=== PATIENT | male | born 1965 | race Caucasian/White ===

== ENCOUNTER 2019-08-14 08:57 | Day surgery (SDC) | payer BC ==
[~2019-08-14 08:57] MED LIST: Lactated Ringers 1,000 ML IV SCH; Lidocaine 1%/Sod Bicarbonate in NS 8.4% 1 ML Syringe IDERM PRN; Sodium Chloride 0.9% 10 ML Syringe FLUSH PRN
--- NOTE | 2019-08-14 09:46 | PCM.PREANE ---
Preanesthetic Assessment - Procedure Proposed Procedure: colonoscopy - Anesthesia/Transfusion/Family Hx Anesthesia History: Prior Anesthesia Without Reaction Family History of Anesthesia Reaction: No Transfusion History: No Prior Transfusion(s) - Review of Systems General: No Symptoms, Chills (last night with prep) Pulmonary: No Symptoms (exertion), Wheezing Cardiovascular: No Symptoms Gastrointestinal: No Symptoms Neurological: No Symptoms Other: Reports: None - Physical Assessment NPO Status Date: 08/13/19 NPO Status Time: 21:00 Vital Signs: 97.5 Height: 5 ft 10 in Weight: 103 kg ASA Class: 2 Mental Status: Alert & Oriented x3 Airway Class: Mallampati = 1 Dentition: Reports: Normal Dentition Thyro-Mental Finger Breadths: 3 Mouth Opening Finger Breadths: 3 ROM/Head Extension: Full Lungs: Clear to Auscultation, Normal Respiratory Effort Cardiovascular: Regular Rate, Regular Rhythm - Allergies Allergies/Adverse Reactions: Allergies Allergy/AdvReac Type Severity Reaction Status Date / Time No Known Allergies Allergy Verified 08/11/19 15:32 - Blood Blood Available: No - Acknowledgements Anesthesia Type Planned: MAC Pt an Appropriate Candidate for the Planned Anesthesia: Yes Alternatives and Risks of Anesthesia Discussed w Pt/Guardian: Yes Pt/Guardian Understands and Agrees with Anesthesia Plan: Yes PreAnesthesia Questionnaire - Past Health History Medical/Surgical History: Denies Medical/Surgical History HEENT History: Reports: None Cardiovascular History: Reports: High Cholesterol Respiratory History: Reports: None Gastrointestinal History: Reports: None Genitourinary History: Reports: None LEAD DESIGNER History: Reports: None Musculoskeletal History: Reports: Other (See Below) Other Musculoskeletal History: right knee arthroscopy, low back pain, left elbow bursal cyst, lipoma of lower leg, ORIF to wrist Neurological History: Reports: None Psychiatric History: Reports: None Endocrine/Metabolic History: Reports: None Hematologic History: Reports: None Immunologic History: Reports: None Oncologic (Cancer) History: Reports: None Dermatologic History: Reports: Other (See Below) Other Dermatologic History: actinic keratosis - Past Surgical History Head Surgeries/Procedures: Reports: None HEENT Surgical History: Reports: None Cardiovascular Surgical History: Reports: None Respiratory Surgical History: Reports: None GI Surgical History: Reports: Colonoscopy Female Surgical History: Reports: None Endocrine Surgical History: Reports: None Neurological Surgical History: Reports: None Musculoskeletal Surgical History: Reports: Arthroscopic Knee Other Musculoskeletal Surgeries/Procedures:: surgery on wrist "years ago" Oncologic Surgical History: Reports: None - SUBSTANCE USE Smoking Status *Q: Never Smoker Tobacco Use Within Last Twelve Months: Other (See Below) Second Hand Smoke Exposure: No Days Per Week of Alcohol Use: 2 Number of Drinks Per Day: 2 (wine) Total Drinks Per Week: 4 Recreational Drug Use History: No Other Recreational Drug Type: marijuana, cocaine and meth in the past- none in 10 years - HOME MEDS Home Medications: Home Meds Cyclobenzaprine HCl 10 mg PO TID PRN 08/11/19 [History] Tadalafil [Cialis] 20 mg PO ASDIRECTED PRN 08/11/19 [History] - CURRENT (IN HOUSE) MEDS Current Meds: Current Medications Lactated Ringer's (Ringers, Lactated) 1,000 mls @ 125 mls/hr IV ASDIRECTED RICHARD Stop: 08/14/19 23:00 Lidocaine/Sodium Bicarbonate (Buffered Lidocaine 1% In Ns 8.4%) 0.25 ml IDERM ONETIME PRN PRN Reason: Prior to IV Start Stop: 08/14/19 18:00 Sodium Chloride (Saline Flush) 10 ml FLUSH ASDIRECTED PRN PRN Reason: Keep Vein Open Stop: 08/14/19 18:00
[2019-08-14] MEDS ORDERED: Midazolam 1 MG/ML 2 ML SDV ONE (10:39)
[2019-08-14] MEDS ORDERED: Propofol 200 MG/20 ML SDV ONE ×2 (10:39→10:44)
[2019-08-14] MEDS ORDERED: fentaNYL 100 MCG/2 ML SDV ONE (11:28)
[2019-08-14] MEDS ORDERED: Lactated Ringers 1,000 ML ONE (11:57)
--- NOTE | 2019-08-14 12:22 | PCM48HPAN ---
Post Anesthesia Note - EVALUATION WITHIN 48HRS OF ANESTHETIC Vital Signs in Normal Range: Yes Patient Participated in Evaluation: Yes Respiratory Function Stable: Yes Airway Patent: Yes Cardiovascular Function Stable: Yes Hydration Status Stable: Yes Pain Control Satisfactory: Yes Nausea and Vomiting Control Satisfactory: Yes Mental Status Recovered: Yes Vital Signs: Last Vital Signs Temp 36.6 C 08/14/19 09:30 Pulse 68 08/14/19 09:30 Resp 20 08/14/19 09:30 BP 109/72 08/14/19 09:30 Pulse Ox 93 L 08/14/19 09:30
[2019-08-14 12:59] VITALS: BP 100/69; PULSE 64
--- NOTE | 2019-08-14 16:06 | OR ---
DATE OF OPERATION: 08/14/2019 SURGEON: Cris Dunn MD PREOPERATIVE DIAGNOSIS: History of polyps. POSTOPERATIVE DIAGNOSIS: 1. Multiple polyps. 2. Hemorrhoids. OPERATION PERFORMED: Colonoscopy with polypectomy. ESTIMATED BLOOD LOSS: Minimal. INDICATION AND CONSENT: Mr. Gordon is a 54-year-old male who underwent a colonoscopy back in 2015, for colon cancer surveillance. 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 Because of this, it was recommended that the patient repeat a colonoscopy in 3 years. The patient was seen in clinic for repeat colonoscopy and was sent to me for the procedure. I saw the patient, discussed about the risks, benefits, and alternatives for the colonoscopy. Risks discussed included perforation and bleeding. The patient understood and agreed to proceed with the procedure. Informed consent was obtained. DESCRIPTION OF PROCEDURE: The patient was taken to procedure room and placed in left lateral decubitus position. Following induction of general monitored anesthesia, perianal exam was performed. The sphincter tone was normal. There were grade 2 hemorrhoids present. Then, colonoscope was placed and advanced all the way to the cecum. The ileocecal valve and appendiceal orifice were photographed. The cecal had 2 small, about 2 mm, polyps. These were removed with a cold snare. Then, the scope was withdrawn slowly. The proximal transverse colon had a polyp that was also removed with cold forceps. The transverse colon, in the midportion of it, also had polyps x2, that were removed with cold forceps. The distal transverse colon had 2 polyps that were removed with cold forceps. All of these polyps were about 2 to 3 mm in size. Then, sigmoid colon had also a polyp that was removed with cold forceps. This was about 3 mm in size. In rectosigmoid, there were two 2 to 3 mm polyps that were removed with cold forceps. The rectum had one 7 mm polyp that was removed with a snare. On retroflexion, there were some hemorrhoids that were confirmed. They were grade 2 hemorrhoids. Then, the scope was withdrawn. There were no other abnormalities. Bleeding was minimal. The patient tolerated the procedure well. The patient was taken to the PACU for recovery. The patient will follow up with our nurse practitioner in 2 weeks to discuss further management and pathology results. IMPRESSION: 2 mm cecal polyps x2, polypectomy performed. One proximal transverse colon polyp, polypectomy performed. 2 midtransverse colon polyps, polypectomy performed. Distal transverse colon polyp x2, polypectomy performed. Sigmoid polyp, polypectomy performed. Rectosigmoid polyp x2, polypectomy performed. Rectal polyp, that was 6 mm, polypectomy performed completely. Lastly, hemorrhoids. ANESTHESIA: MMODAL /[id number]
== END 2019-08-14 13:07 | disposition home or self-care (01) ==
LOC: JD.SDS 08:57
PROVIDERS: ATTEND Surgery
DX: Z12.11 Encounter for screening for malignant neoplasm of colon (principal); D12.0 Benign neoplasm of cecum; K63.5 Polyp of colon; D12.3 Benign neoplasm of transverse colon; D12.7 Benign neoplasm of rectosigmoid junction; K62.1 Rectal polyp; K64.1 Second degree hemorrhoids; E78.00 Pure hypercholesterolemia, unspecified; Z86.010 Personal history of colon polyps; Z79.899 Other long term (current) drug therapy
CPT/HCPCS: J2250; J2704; J3010; J7120